=== PATIENT | male | born 1955 | race Caucasian/White ===

== ENCOUNTER 2016-09-16 05:15 | Day surgery (SDC) | payer BC ==
[~2016-09-16 05:15] MED LIST: Dextrose 5%-0.45% NaCl 1,000 ML IV SCH; Sodium Chloride 0.9% 10 ML Syringe FLUSH PRN
[2016-09-16] MEDS ORDERED: fentaNYL 100 MCG/2 ML SDV ONE (06:13)
[2016-09-16] MEDS ORDERED: Midazolam 1 MG/ML 2 ML SDV ONE (06:13)
[2016-09-16] MEDS ORDERED: fentaNYL 100 MCG/2 ML SDV IV ONE ×4 (06:26→16:36)
[2016-09-16] MEDS ORDERED: Midazolam 1 MG/ML 2 ML SDV IV ONE ×7 (06:27→16:36)
--- NOTE | 2016-09-16 07:26 | OR ---
DATE: 09/16/2016 PROCEDURES: Total colonoscopy, terminal ileoscopy, NBI, and multiple pinch biopsies. INSTRUMENT USED: CF-H180AL Olympus video colonoscope. PREMEDICATIONS: Fentanyl 125 mcg intravenous, Versed 4 mg intravenous. Nasal O2 cannula. The procedure was done under pulse oximetry, BP recording, and hoop flaring machine operator. INDICATION: The patient with chronic diarrhea unexplained and not responsive to medical measures. Colonoscopic examination is done for detection of any polypoid lesions and removal, endoscopic hemostasis therapy if needed. DESCRIPTION OF PROCEDURE: Initial rectal exam showed external hemorrhoidal tags. Rigid anoscopy showed small internal hemorrhoids without bleeding from them. The colonoscope was passed with ease. Numerous scattered diverticula were noted in the distal left colon along with some deformity. The scope was passed with ease up to and beyond the ileocecal junction to visualize normal-appearing terminal ileum, NBI views were obtained, multiple pinch biopsies were obtained from the terminal ileum. Photographs were taken of the normal-appearing cecum. No bleeding was noted from any of the visualized areas at the commencement of the examination. No stricture. No vascular ectasia. No large isolated ulcerations seen. No evidence of diffuse inflammatory bowel disease in the form of friability, contact bleeding, or ulcerations. Some patchy erythema was noted of the sigmoid area. Probing the proximal sides of folds and flexures using adequate distention and clearing of the stool material, withdrawal of the scope was made. Multiple pinch biopsies were taken from the transverse colon, mid- descending colon, and rectosigmoid, and sent for any histopathologic evidence of microscopic colitis. No bleeding was noted from any of the visualized areas at the completion of examination. IMPRESSION: 1. External and internal hemorrhoids. 2. Diverticulosis. The patient tolerated the procedure well. [facility] /[id number]
[2016-09-16 09:06] VITALS: BP 153/82
== END 2016-09-16 08:52 | disposition home or self-care (01) ==
LOC: DL.ENDO 05:15
PROVIDERS: ATTEND Internal Medicine Gastroenterology
DX: K52.832 Lymphocytic colitis (principal); K57.30 Diverticulosis of large intestine without perforation or abscess without bleeding; K64.4 Residual hemorrhoidal skin tags; K64.8 Other hemorrhoids; I10 Essential (primary) hypertension; K21.9 Gastro-esophageal reflux disease without esophagitis; E03.9 Hypothyroidism, unspecified; F41.1 Generalized anxiety disorder; N52.9 Male erectile dysfunction, unspecified; E66.09 Other obesity due to excess calories; Z79.899 Other long term (current) drug therapy
CPT/HCPCS: 45380; J2250; J3010; J7042

== ENCOUNTER 2018-05-22 13:55 | Emergency (ER) | payer BC ==
--- NOTE | 2018-05-22 14:13 | EDM.PDOC ---
ED HPI GENERAL MEDICAL PROBLEM - General Chief Complaint: Chest Pain Stated Complaint: BLOOD PRESSURE HIGH, CHEST PAINS Time Seen by Provider: 05/22/18 14:13 Source of Information: Reports: Patient, Old Records, RN, RN Notes Reviewed History Limitations: Reports: No Limitations - History of Present Illness INITIAL COMMENTS - FREE TEXT/NARRATIVE: Pt arrives to ER from pharmacy ([facility]) for evaluation of high blood pressure. Pt states he had his BP checked at the pharmacy and it was 200/110 and the pharmacist told him to go to the ER immediately. Pt denies any acute of recent symptoms. He report a Hx of HTN for the last 20 or 25 years. He admits to chest pain, but states it is chronic and unchanged for many year. The chest pain developed following a C-spine surgery. He underwent a chest pain evaluation , and was told the pain was "radicular pain" from his neck. He had a negative cardiac stress test in 2015. He denies edema, shortness of breath, cough, or orthopnea. Pt states his BP was well controlled until he had a change in medications last winter. In 2017 he began to notice that has BP slowly increased since being switched to Cozaar. Duration: Chronic Location: Reports: Other Severity: Severe Improves with: Reports: None Worsens with: Reports: None Associated Symptoms: Reports: No Other Symptoms Treatments PER DIEM: Reports: Other (see below) Left Chest Pain Score (Numeric/FACES): 5 - Related Data Allergies Allergy/AdvReac Type Severity Reaction Status Date / Time No Known Allergies Allergy Verified 05/22/18 14:08 Home Meds: Home Meds Aspirin [Adult Low Dose Aspirin EC] 81 mg PO DAILY 07/29/15 [History] Ibuprofen 400 mg PO ASDIRECTED PRN 07/29/15 [History] Levothyroxine 175 mcg PO DAILY 07/29/15 [History] Metoprolol Succinate [Toprol XL] 100 mg PO DAILY 07/29/15 [History] Omeprazole 20 mg PO Q4HR 07/29/15 [History] Sildenafil Citrate [Viagra] 100 mg PO ASDIRECTED PRN 07/29/15 [History] Losartan Potassium 50 mg PO DAILY 05/22/18 [History] Past Medical History HEENT History: Reports: None Cardiovascular History: Reports: High Cholesterol, Hypertension Respiratory History: Reports: None Gastrointestinal History: Reports: Chronic Diarrhea, Diverticulosis, GERD Genitourinary History: Reports: Other (See Below) Other Genitourinary History: ERECTILE DYSFUNCTION Musculoskeletal History: Reports: Arthritis, Back Pain, Chronic Neurological History: Reports: None Psychiatric History: Reports: None Endocrine/Metabolic History: Reports: Hypothyroidism, Other (See Below) Other Endocrine/Metabolic History: IMPAIRED FASTING GLUCOSE Hematologic History: Reports: Anemia Immunologic History: Reports: None Dermatologic History: Reports: Psoriasis - Infectious Disease History Infectious Disease History: Reports: Chicken Pox, Measles, Mumps - Past Surgical History HEENT Surgical History: Reports: None, Cataract Surgery GI Surgical History: Reports: Colonoscopy, EGD, Hernia, Inguinal, Other (See Below) Other GI Surgeries/Procedures: RIGHT INGUINAL HERNIA Neurological Surgical History: Reports: Laminectomy, Other (See Below) Other Neurological Surgeries/Procedures: S/P LUMBOSACRAL LAMINECTOMY. S/P CERVICAL LAMINECTOMY Musculoskeletal Surgical History: Reports: Other (See Below) Other Musculoskeletal Surgeries/Procedures:: Back and neck surgery for herniated discs. Social & Family History - Family History Family Medical History: Noncontributory - Caffeine Use Caffeine Use: Reports: Coffee Other Caffeine Use: 3 cups per day (Lg.) - Living Situation & Occupation Living situation: Reports: , with Spouse ED ROS GENERAL - Review of Systems Review Of Systems: ROS reveals no pertinent complaints other than HPI. ED EXAM, GENERAL - Physical Exam Exam: See Below Exam Limited By: No Limitations General Appearance: Alert, WD/WN, No Apparent Distress Eye Exam: Bilateral Eye: Other (no AV nicking) Nose: Normal Inspection, Normal Mucosa, No Blood Throat/Mouth: Normal Inspection, Normal Lips, Normal Voice, No Airway Compromise Head: Atraumatic, Normocephalic Neck: Normal Inspection, Supple, Non-Tender, Full Range of Motion Respiratory/Chest: No Respiratory Distress, Lungs Clear, Normal Breath Sounds, No Accessory Muscle Use, Chest Non-Tender Cardiovascular: Normal Peripheral Pulses, Regular Rate, Rhythm, No Edema, No Gallop, No JVD, No Murmur, No Rub GI/Abdominal: Normal Bowel Sounds, Soft, Non-Tender, No Organomegaly, No Distention, No Abnormal Bruit, No Mass (Male) Exam: Deferred Rectal (Males) Exam: Deferred Back Exam: Normal Inspection Extremities: Normal Inspection, Normal Range of Motion, Non-Tender, Normal Capillary Refill, No Pedal Edema Neurological: Alert, Oriented, CN II-XII Intact, Normal Cognition, No Motor/ Sensory Deficits Psychiatric: Normal Affect, Normal Mood Skin Exam: Warm, Dry, Intact, Normal Color, No Rash EKG INTERPRETATION EKG Date: 05/22/18 Time: 14:09 Rhythm: Other (SR) Rate (Beats/Min): 68 [place]: LAD-Left [place] Deviation P-Wave: Present QRS: Normal ST-T: Normal QT: Normal Comparison: Change From Previous EKG EKG Interpretation Comments: New inferior Q waves compared to July 2015. No acute ischemic changes. Course - Vital Signs Last Recorded V/S: Last Vital Signs Temp 37.1 C 05/22/18 13:58 Pulse 72 05/22/18 13:58 Resp 20 05/22/18 13:58 BP 191/111 H 05/22/18 13:58 Pulse Ox 97 05/22/18 13:58 BPs after rest in ER: 152-170/79-85. - Orders/Labs/Meds Orders: Active Orders 24 hr Category Date Time Status EKG 12 Lead [EKG Documentation Completion] [RC] STAT Care 05/22/18 14:13 Active Labs: Laboratory Tests 05/22/18 05/22/18 05/22/18 Range/Units 14:38 14:38 14:38 WBC 5.9 (5.0-10.0) 10^3/uL RBC 4.48 L (4.6-6.2) 10^6/uL Hgb 14.4 (14.0-18.0) g/dL Hct 43.5 (40.0-54.0) % MCV 97.1 (80-100) fL MCH 32.1 (27.0-34.0) pg MCHC 33.1 (33.0-35.0) g/dL Plt Count 173 (150-450) 10^3/uL Neut % (Auto) 63.9 (42.2-75.2) % Lymph % (Auto) 21.9 (20.5-50.1) % [place] % (Auto) 10.8 H (2-8) % Eos % (Auto) 2.7 (1.0-3.0) % Baso % (Auto) 0.7 (0.0-1.0) % Sodium 138 (135-145) mmol/L Potassium 3.6 (3.6-5.0) mmol/L Chloride 102 (101-111) mmol/L Carbon Dioxide 26.0 (21.0-31.0) mmol/L Anion Gap 13.6 BUN 11 (7-18) mg/dL Creatinine 1.0 (0.6-1.3) mg/dL Est Cr Clr Drug Dosing 71.61 mL/min Estimated GFR (MDRD) > 60 BUN/Creatinine Ratio 11.00 Glucose 122 H (74-105) mg/dL Calcium 8.9 (8.4-10.2) mg/dl Total Bilirubin 0.9 (0.2-1.0) mg/dL AST 47 H (10-42) IU/L ALT 55 (10-60) IU/L Alkaline Phosphatase 55 (42-121) IU/L Troponin I < 0.02 (0.00-0.02) ng/ml Total Protein 6.9 (6.7-8.2) g/dl Albumin 4.0 (3.2-5.5) g/dl Globulin 2.9 Albumin/Globulin Ratio 1.38 TSH, Ultra Sensitive 2.89 (0.45-5.33) uIu/mL - Radiology Interpretation Free Text/Narrative:: CXR: Rt basilar atelectasis, no other acute changes per Rad. report. Departure - Departure Time of Disposition: 15:44 Disposition: Home, Self-Care 01 Condition: Good Clinical Impression: Uncontrolled hypertension Instructions: Managing Your Hypertension Forms: ED Department Discharge Additional Instructions: Increase Losartan 50mg to 100mg (two tablets) daily. Restart the Aspirin 81mg daily. Continue all other medications as prescribed. Call [facility] to make appointment with Dr. Fitzpatrick for May 24. - My Orders Last 24 Hours: My Active Orders 05/22/18 14:13 EKG 12 Lead [EKG Documentation Completion] [RC] STAT - Assessment/Plan Last 24 Hours: My Active Orders 05/22/18 14:13 EKG 12 Lead [EKG Documentation Completion] [RC] STAT
[2018-05-22 14:50] VITALS: BP 191/111
[2018-05-22 15:04] LABS: ANION GAP 13.6; CHLORIDE,CL 102 mmol/L (101-111); SODIUM,NA 138 mmol/L (135-145)
--- NOTE | 2018-05-22 15:07 | CR ---
Clinical history: 62-year-old male uncontrolled hypertension. Interpretation: Platelike atelectasis right base reflecting less than optimal inspiratory effort. Chronic hypertrophic arthritic changes of the spine and ectasia of the aorta. Normal cardiac silhouette without cephalization of flow, alveolar edema or dependent new pleural fluid accumulation when compared to 16 February 2012 exam. (Old lower cervical spinal fusion and external pulmonary function technologist leads). No new lung mass, hilar lymphadenopathy or focal lobar pneumonia. No pneumothorax. CONCLUSION: Atelectasis right lung base.
== END 2018-05-22 15:56 | disposition home or self-care (01) ==
LOC: DL.ED 13:55
DX: I10 Essential (primary) hypertension (principal); E03.9 Hypothyroidism, unspecified; K21.9 Gastro-esophageal reflux disease without esophagitis; E78.00 Pure hypercholesterolemia, unspecified; Z79.82 Long term (current) use of aspirin; Z79.899 Other long term (current) drug therapy
CPT/HCPCS: 36415; 71046; 80053; 84443; 84484; 85025; 93005; 99285-25

== ENCOUNTER 2019-08-14 05:21 | Day surgery (SDC) | payer BC ==
[2019-08-14] MEDS ORDERED: fentaNYL 100 MCG/2 ML SDV IV ONE ×3 (05:22→06:30)
[2019-08-14] MEDS ORDERED: Midazolam 1 MG/ML 2 ML SDV IV ONE ×3 (05:22→06:31)
[2019-08-14] MEDS ORDERED: Midazolam 1 MG/ML 2 ML SDV ONE (06:14)
[2019-08-14] MEDS ORDERED: Dextrose 5%-0.45% NaCl 1,000 ML IV SCH (06:15)
[2019-08-14] MEDS ORDERED: fentaNYL 100 MCG/2 ML SDV ONE (06:15)
[2019-08-14 11:08] VITALS: BP 134/94; PULSE 87
--- NOTE | 2019-08-14 13:54 | OR ---
DATE: 08/14/2019 PROCEDURE: Esophagogastroduodenoscopy and multiple pinch biopsies. INSTRUMENT USED: GIF-HQ190 Olympus video panendoscope. PREMEDICATIONS: No oral or topical anesthesia used. Fentanyl 100 mcg intravenous, Versed 2 mg intravenous. Nasal O2 cannula. The procedure was done under pulse oximetry, BP recording, and still cleaner. INDICATION: The patient with persistent abdominal pain, unexplained and not responsive to medical measures, on high-dose PPI. Esophagogastroduodenoscopy is performed for detection of any active erosive lesions, [place] esophagus and/or malignancy also under consideration, H. pylori status to be determined, endoscopic hemostasis therapy if needed. DESCRIPTION OF PROCEDURE: The scope was passed with ease. Adequate visualization of the esophagus was made from proximal to distal areas. No upper esophageal lesions identified. No distal esophageal stricture. No uphill or downhill esophageal varices. No Guadalupe-Saavedra tear. No evidence of erosive esophagitis by [place] criteria. No esophageal polyp or tumor mass identified. Z-line was seen at around 40 cm distal to the oral verge, configuration consistent with grade 1 by ZAP classification. No proximal gastric varices noted. Gastric fundus examination by retroflexion showed no polypoid lesions. The examination was compromised in a few areas due to the presence of solid food material that could not be aspirated clear. No gastric ulcer, malignant mass, or vascular ectasia identified. Patchy erythema on the gastric antral mucosa was noted. Duodenal bulb showed no ulcer. Visualized second part of the duodenum was unremarkable. Multiple pinch biopsies were taken from the gastric antrum and proximal body and sent for PyloriTek test for H. pylori, and if negative in an hour, the tissue is to be sent for histopathology. No bleeding was noted from any of the visualized areas at the completion of the examination. Photographs were taken of the duodenal bulb, gastric antrum, fundus, and distal esophagus. IMPRESSION: Gastroparesis. The patient tolerated the procedure well. [facility] /[id number]
== END 2019-08-14 08:59 | disposition home or self-care (01) ==
LOC: DL.ENDO 05:21
PROVIDERS: ATTEND Internal Medicine Gastroenterology
DX: K29.00 Acute gastritis without bleeding (principal); K29.50 Unspecified chronic gastritis without bleeding; K31.84 Gastroparesis; K31.9 Disease of stomach and duodenum, unspecified; E66.09 Other obesity due to excess calories; I10 Essential (primary) hypertension; E03.9 Hypothyroidism, unspecified; K21.9 Gastro-esophageal reflux disease without esophagitis; F41.1 Generalized anxiety disorder; Z79.899 Other long term (current) drug therapy; Z68.35 Body mass index [BMI] 35.0-35.9, adult
CPT/HCPCS: 43239; 87077; J2250; J3010; J7042

== ENCOUNTER 2019-12-25 12:38 | Emergency (ER) | payer BC ==
[2019-12-25 12:59] VITALS: BP 132/81; PULSE 98
--- NOTE | 2019-12-25 13:26 | EDM.PDOC ---
ED HPI GENERAL MEDICAL PROBLEM - General Chief Complaint: General Stated Complaint: SHORTNESS OF BREATH Time Seen by Provider: 12/25/19 13:05 Source of Information: Reports: Patient, RN, RN Notes Reviewed History Limitations: Reports: No Limitations - History of Present Illness INITIAL COMMENTS - FREE TEXT/NARRATIVE: Patient presents to the ED via personal vehicle with complaints of shortness of breath, body aches, and fever. Per patient report, his symptoms began on Tuesday of this past week (12/21/2019). He states his tested positive for COVID last Tuesday (12/18/2019) and has been quarantining in their home since that time. He attests to sore throat, dry cough, chest pain, nausea, diarrhea, and headache; his Tmax was 103 this morning at 0300. He denies palpitations, dyspepsia, vomiting, melena, or hematochezia. The patient states he has taken Motrin 800mg x2 for his fevers, which he states has alleviated his fever for some time. He reports he feels like he has COVID, but is concerned as he became increasingly short of breath this morning at about 0300 while wearing his CPAP. He checked his oxygen saturation on an at home monitor and it read in the 70s - Related Data Allergies Allergy/AdvReac Type Severity Reaction Status Date / Time HUMIRA PEN STARTER AdvReac Unknown SWELLING Uncoded 12/25/19 12:55 OF LEGS/FEET Home Meds: Home Meds Aspirin [Adult Low Dose Aspirin EC] 81 mg PO DAILY 07/29/15 [History] Ibuprofen 400 mg PO ASDIRECTED PRN 07/29/15 [History] Levothyroxine 175 mcg PO DAILY 07/29/15 [History] Metoprolol Succinate [Toprol XL] 100 mg PO DAILY 07/29/15 [History] Omeprazole 20 mg PO BID 07/29/15 [History] Sildenafil Citrate [Viagra] 100 mg PO ASDIRECTED PRN 07/29/15 [History] Apixaban [Eliquis] 5 mg PO BID 08/13/19 [History] Ixekizumab [Taltz Syringe] 800 mg INJECT .MONTH 08/13/19 [History] amLODIPine Besylate [Amlodipine Besylate] 10 mg PO DAILY 08/13/19 [History] atorvaSTATin Calcium [Atorvastatin Calcium] 40 mg PO DAILY 08/13/19 [History] predniSONE [Prednisone] 3 mg PO BID 08/13/19 [History] Past Medical History HEENT History: Reports: Impaired Vision Cardiovascular History: Reports: Afib, High Cholesterol, Hypertension Respiratory History: Reports: None Gastrointestinal History: Reports: Chronic Diarrhea, Diverticulosis, GERD, Other (See Below) Other Gastrointestinal History: LYMPHOCYTIC COLITIS Genitourinary History: Reports: Other (See Below) Other Genitourinary History: ERECTILE DYSFUNCTION Musculoskeletal History: Reports: Arthritis, Back Pain, Chronic, Fracture, Other (See Below) Other Musculoskeletal History: HX OF SHOULDER AND FOOT FRACTURES Neurological History: Reports: Other (See Below) Other Neuro History: pinched nerve in neck Psychiatric History: Reports: Anxiety Endocrine/Metabolic History: Reports: Hypothyroidism, Obesity/BMI 30+, Vitamin D Deficiency, Other (See Below) Other Endocrine/Metabolic History: IMPAIRED FASTING GLUCOSE Hematologic History: Reports: Anemia Immunologic History: Reports: None Oncologic (Cancer) History: Reports: None Dermatologic History: Reports: Psoriasis - Infectious Disease History Infectious Disease History: Reports: None - Past Surgical History Head Surgeries/Procedures: Reports: None HEENT Surgical History: Reports: Cataract Surgery Cardiovascular Surgical History: Reports: None Respiratory Surgical History: Reports: None GI Surgical History: Reports: Colonoscopy, EGD, Hernia, Inguinal, Other (See Below) Other GI Surgeries/Procedures: RIGHT INGUINAL HERNIA Male Surgical History: Reports: None Endocrine Surgical History: Reports: None Neurological Surgical History: Reports: C-Spine, Laminectomy, Other (See Below) Other Neurological Surgeries/Procedures: S/P LUMBOSACRAL LAMINECTOMY. S/P CERVICAL LAMINECTOMY Musculoskeletal Surgical History: Reports: Other (See Below) Other Musculoskeletal Surgeries/Procedures:: Back and neck surgery for herniated discs. Oncologic Surgical History: Reports: None Dermatological Surgical History: Reports: None Social & Family History - Family History Family Medical History: Noncontributory - Tobacco Use Tobacco Use Status *Q: Unknown Ever Used Tobacco - Caffeine Use Caffeine Use: Reports: Coffee Other Caffeine Use: 1 CUP DECAF, 1 CUP REGULAR - Alcohol Use Days Per Week of Alcohol Use: 7 Number of Drinks Per Day: 2 Total Drinks Per Week: 14 - Recreational Drug Use Recreational Drug Use: No - Living Situation & Occupation Living situation: Reports: , with Spouse ED ROS GENERAL - Review of Systems Review Of Systems: Comprehensive ROS is negative, except as noted in HPI. ED EXAM, GENERAL - Physical Exam Exam: See Below Exam Limited By: No Limitations General Appearance: Alert, WD/WN, No Apparent Distress Eye Exam: Bilateral Eye: EOMI, Normal Inspection, PERRL Ears: Normal External Exam, Normal Canal, Hearing Grossly Normal. No: Normal TMs (Right cerumen impaction; Left TM normal) Ear Exam: Left Ear: TM normal (R TM not visualized d/t cerumen impactoin), Bilateral Ear: Auricle Normal, Canal Normal Nose: Normal Inspection, Clear Rhinorrhea Throat/Mouth: Normal Lips, Normal Oropharynx, Normal Voice, No Airway Compromise, Inflammation (Erythema to posterior oropharynx) Head: Atraumatic, Normocephalic Neck: Normal Inspection, Supple, Non-Tender, Full Range of Motion, Lymphadenopathy (L). No: Lymphadenopathy (R) Respiratory/Chest: No Accessory Muscle Use, Decreased Breath Sounds. No: Chest Non-Tender, Crackles, Rales, Rhonchi, Wheezing Cardiovascular: Normal Peripheral Pulses, No Gallop, No JVD, No Murmur, No Rub, Irregularly Irregular (AFib). No: No Edema (+1 pitting to BLE) Peripheral Pulses: 2+: Radial (L), Radial (R) GI/Abdominal: Soft, No Distention, No Mass, Abnormal Bowel Sounds (Hyperactive) Back Exam: Normal Inspection, Full Range of Motion. No: CVA Tenderness (L), CVA Tenderness (R) Extremities: Normal Range of Motion, Normal Capillary Refill, Pedal Edema (+1 pitting to LLE). No: Non-Tender (Generalized muscle aches) Neurological: Alert, Oriented, CN II-XII Intact, Normal Cognition, Normal Gait, No Motor/Sensory Deficits Skin Exam: Warm, Dry, Intact, Normal Color, No Rash. No: Ecchymosis, Erythema, Mottled, Pallor, Petechiae, Rash #1 Interpretation EKG Date: 12/25/19 Time: 13:23 Rhythm: A-Flutter [place]: LAD-Left [place] Deviation P-Wave: Absent QRS: Normal ST-T: Normal QT: Normal Course - Vital Signs Last Recorded V/S: Last Vital Signs Temp 99.4 F 12/25/19 12:56 Pulse 98 12/25/19 12:56 Resp 18 12/25/19 12:56 BP 132/81 12/25/19 12:56 Pulse Ox 93 L 12/25/19 12:56 - Orders/Labs/Meds Orders: Active Orders 24 hr Category Date Time Status EKG Documentation Completion [RC] STAT Care 12/25/19 13:13 Active CORONAVIRUS COVID-19 PCR PHL Stat Lab 12/25/19 12:50 Received CULTURE BLOOD [BC] Stat Lab 12/25/19 13:30 Received FERRITIN [CHEM] Stat Lab 12/25/19 13:30 Received Labs: Laboratory Tests 12/25/19 12/25/19 12/25/19 Range/Units 13:30 13:30 13:30 WBC 5.4 (5.0-10.0) 10^3/uL RBC 4.72 (4.6-6.2) 10^6/uL Hgb 15.0 (14.0-18.0) g/dL Hct 45.4 (40.0-54.0) % MCV 96.2 (80-100) fL MCH 31.8 (27.0-34.0) pg MCHC 33.0 (33.0-35.0) g/dL Plt Count 111 L (150-450) 10^3/uL Neut % (Auto) 81.8 H (42.2-75.2) % Lymph % (Auto) 9.2 L (20.5-50.1) % [place] % (Auto) 9.0 H (2-8) % Eos % (Auto) 0.0 L (1.0-3.0) % Baso % (Auto) 0.0 (0.0-1.0) % PT 11.8 (9.0-12.0) SEC INR 1.2 (0.9-1.2) APTT 31.0 (22.0-34.0) SEC D-Dimer, Quantitative (0-400) ng/mL Sodium 142 (136-145) mmol/L Potassium 3.8 (3.5-5.1) mmol/L Chloride 104 (98-107) mmol/L Carbon Dioxide 26 (21-32) mmol/L Anion Gap 15.8 H (7-13) mEq/L BUN 15 (7-18) mg/dL Creatinine 1.10 (0.70-1.30) mg/dL Est Cr Clr Drug Dosing 63.43 mL/min Estimated GFR (MDRD) > 60 BUN/Creatinine Ratio 13.6 (No establ ref range) Glucose 116 H (74-99) mg/dL Lactic Acid (0.4-2.0) mmol/L Calcium 9.1 (8.5-10.1) mg/dL Magnesium 1.6 L (1.8-2.4) mg/dL Total Bilirubin 0.5 (0.2-1.0) mg/dL AST 28 (15-37) U/L ALT 44 (16-63) U/L Alkaline Phosphatase 61 (46-116) U/L Troponin I < 0.017 (0.000-0.056) ng/mL C-Reactive Protein 16.8 H (0.0-0.9) mg/dL Total Protein 7.0 (6.4-8.2) g/dL Albumin 3.1 L (3.4-5.0) g/dL Globulin 3.9 Albumin/Globulin Ratio 0.79 12/25/19 12/25/19 Range/Units 13:30 13:30 WBC (5.0-10.0) 10^3/uL RBC (4.6-6.2) 10^6/uL Hgb (14.0-18.0) g/dL Hct (40.0-54.0) % MCV (80-100) fL MCH (27.0-34.0) pg MCHC (33.0-35.0) g/dL Plt Count (150-450) 10^3/uL Neut % (Auto) (42.2-75.2) % Lymph % (Auto) (20.5-50.1) % [place] % (Auto) (2-8) % Eos % (Auto) (1.0-3.0) % Baso % (Auto) (0.0-1.0) % PT (9.0-12.0) SEC INR (0.9-1.2) APTT (22.0-34.0) SEC D-Dimer, Quantitative 138 (0-400) ng/mL Sodium (136-145) mmol/L Potassium (3.5-5.1) mmol/L Chloride (98-107) mmol/L Carbon Dioxide (21-32) mmol/L Anion Gap (7-13) mEq/L BUN (7-18) mg/dL Creatinine (0.70-1.30) mg/dL Est Cr Clr Drug Dosing mL/min Estimated GFR (MDRD) BUN/Creatinine Ratio (No establ ref range) Glucose (74-99) mg/dL Lactic Acid 1.5 (0.4-2.0) mmol/L Calcium (8.5-10.1) mg/dL Magnesium (1.8-2.4) mg/dL Total Bilirubin (0.2-1.0) mg/dL AST (15-37) U/L ALT (16-63) U/L Alkaline Phosphatase (46-116) U/L Troponin I (0.000-0.056) ng/mL C-Reactive Protein (0.0-0.9) mg/dL Total Protein (6.4-8.2) g/dL Albumin (3.4-5.0) g/dL Globulin Albumin/Globulin Ratio Departure - Departure Time of Disposition: 14:42 Disposition: Home, Self-Care 01 Condition: Good Clinical Impression: Close exposure to COVID-19 virus, Viral upper respiratory illness - Discharge Information *PRESCRIPTION DRUG MONITORING PROGRAM REVIEWED*: Not Applicable *COPY OF PRESCRIPTION DRUG MONITORING REPORT IN PATIENT [place]: Not Applicable Instructions: Viral Respiratory Infection, [id number] Forms: ED Department Discharge Additional Instructions: Remain in self-isolation until results from COVID screen have been determined; if positive remain in quarantine until 14 post-symptoms. Drink plenty of fluids to stay hydrated. Take 650mg acetaminophen (Tylenol) every six hours, as fever and muscle aches persists. Take 400mg ibuprofen (Motrin/Advil) every six hours, as fever and muscle aches persists. You can stagger these medications so you are taking a dose of each medication every 3 hours. Follow up with primary care provider or emergency department with any significant worsening of shortness of breath, chest pain, or fever that does not reduce with medications. Sepsis Event Note (ED) - Evaluation Sepsis Screening Result: No Definite Risk - Focused Exam Vital Signs: Vital Signs Temp Pulse Resp BP Pulse Ox 12/25/19 12:56 99.4 F 98 18 132/81 93 L - My Orders Last 24 Hours: My Active Orders 12/25/19 12:50 CORONAVIRUS COVID-19 PCR PHL Stat 12/25/19 13:13 EKG Documentation Completion [RC] STAT 12/25/19 13:30 CULTURE BLOOD [BC] Stat FERRITIN [CHEM] Stat - Assessment/Plan Last 24 Hours: My Active Orders 12/25/19 12:50 CORONAVIRUS COVID-19 PCR PHL Stat 12/25/19 13:13 EKG Documentation Completion [RC] STAT 12/25/19 13:30 CULTURE BLOOD [BC] Stat FERRITIN [CHEM] Stat
[2019-12-25 14:04] LABS: ANION GAP 15.8 mEq/L (7-13); CHLORIDE,CL 104 mmol/L (98-107); SODIUM,NA 142 mmol/L (136-145)
== END 2019-12-25 14:55 | disposition home or self-care (01) ==
LOC: DL.ED 12:38
DX: J06.9 Acute upper respiratory infection, unspecified (principal); H61.21 Impacted cerumen, right ear; I48.91 Unspecified atrial fibrillation; E78.00 Pure hypercholesterolemia, unspecified; I10 Essential (primary) hypertension; K21.9 Gastro-esophageal reflux disease without esophagitis; M19.90 Unspecified osteoarthritis, unspecified site; E03.9 Hypothyroidism, unspecified; E66.9 Obesity, unspecified; Z68.34 Body mass index [BMI] 34.0-34.9, adult; Z79.01 Long term (current) use of anticoagulants; Z20.828 Contact with and (suspected) exposure to other viral communicable diseases; Z88.8 Allergy status to other drugs, medicaments and biological substances
CPT/HCPCS: 36415; 80053; 82728; 83605; 83735; 84484; 85025; 85379; 85610; 85730; 86140; 87040; 93005; 99285-25; U0002

== ENCOUNTER 2021-07-26 15:44 | Emergency (ER) | payer MEDICARE, BC ==
[2021-07-26] MEDS ORDERED: Acetaminophen/HYDROcodone 325-10 MG Tab PO ONE (15:45)
[2021-07-26] MEDS ORDERED: Ondansetron 4 MG/2 ML SDV IVPUSH ONE (16:18)
[2021-07-26] MEDS ORDERED: HYDROmorphone 1 MG/ML Syringe IVPUSH ONE (16:18)
[2021-07-26 16:55] LABS: PTT,PARTIAL THROMBOPLSTIN TIME 26.3 SEC (22.0-34.0)
[2021-07-26 17:01] LABS: ANION GAP 15.4 mEq/L (7-13); CHLORIDE,CL 106 mmol/L (98-107); SODIUM,NA 146 mmol/L (136-145)
[2021-07-26] MEDS ORDERED: Iopamidol 612 MG/ML 100 ML Bottle IVPUSH ONE (17:07)
[2021-07-26] MEDS ORDERED: Acetaminophen/HYDROcodone 325-10 MG Tab ONE (20:21)
[2021-07-26 20:28] VITALS: BP 144/92; PULSE 88
== END 2021-07-26 20:28 | disposition home or self-care (01) ==
LOC: DL.ED 15:44
DX: S82.831A Other fracture of upper and lower end of right fibula, initial encounter for closed fracture (principal); I48.91 Unspecified atrial fibrillation; E78.00 Pure hypercholesterolemia, unspecified; I10 Essential (primary) hypertension; E03.9 Hypothyroidism, unspecified; E66.9 Obesity, unspecified; Z68.35 Body mass index [BMI] 35.0-35.9, adult; Z79.82 Long term (current) use of aspirin; Z88.8 Allergy status to other drugs, medicaments and biological substances; Z79.01 Long term (current) use of anticoagulants; Z79.899 Other long term (current) drug therapy; W18.30XA Fall on same level, unspecified, initial encounter
CPT/HCPCS: 36415; 73701; 80053; 82550; 83605; 85025; 85610; 85730; 86140; 96374; 96375; 99284; A9270; J1170; J2405; Q9967

== ENCOUNTER 2021-09-08 19:54 | Emergency (ER) | payer MEDICARE, BC ==
[2021-09-08] MEDS ORDERED: Ondansetron 4 MG Tab.DIS PO ONE (19:55)
[2021-09-08] MEDS: Ondansetron 4 MG/2 ML SDV IVPUSH ONE (20:31)
[2021-09-08] MEDS: HYDROmorphone 1 MG/ML Syringe IVPUSH ONE ×2 (20:32→22:18)
[2021-09-08] MEDS: Sodium Chloride 0.9% 1,000 ML IV ONE (20:34)
[2021-09-08 20:48] LABS: PTT,PARTIAL THROMBOPLSTIN TIME 26.5 SEC (22.0-34.0)
[2021-09-08 20:51] LABS: CHLORIDE,CL 103 mmol/L (98-107); SODIUM,NA 143 mmol/L (136-145)
[2021-09-08 21:00] LABS: ESTIMATED GFR 63 mL/min (>=60)
[2021-09-08] MEDS ORDERED: Iopamidol 612 MG/ML 100 ML Bottle IVPUSH ONE (21:16)
[2021-09-08] MEDS: Famotidine 20 MG/2 ML SDV IVPUSH ONE (22:15)
[2021-09-08 22:44] VITALS: BP 121/76; PULSE 76
[2021-09-08] MEDS: Ondansetron 4 MG Tab.DIS ONE (23:07)
== END 2021-09-08 23:05 | disposition home or self-care (01) ==
LOC: DL.ED 19:54
DX: K57.90 Diverticulosis of intestine, part unspecified, without perforation or abscess without bleeding (principal); K80.20 Calculus of gallbladder without cholecystitis without obstruction; K76.0 Fatty (change of) liver, not elsewhere classified; E78.00 Pure hypercholesterolemia, unspecified; I10 Essential (primary) hypertension; E66.9 Obesity, unspecified; Z68.36 Body mass index [BMI] 36.0-36.9, adult; Z88.8 Allergy status to other drugs, medicaments and biological substances; Z79.82 Long term (current) use of aspirin; Z79.899 Other long term (current) drug therapy; Z79.01 Long term (current) use of anticoagulants; Z86.16 Personal history of COVID-19; Z20.822 Contact with and (suspected) exposure to COVID-19
CPT/HCPCS: 36415; 74176; 80053; 81001; 82150; 83605; 83690; 83880; 84484; 85025; 85610; 85730; 86140; 93005; 96361; 96374; 96375; 96376; 99284-25; A9270-GY; J1170; J2405; J3490; J7030; U0002

== ENCOUNTER 2021-09-09 07:49 | Emergency (ER) | payer MEDICARE, BC ==
[2021-09-09 08:07] VITALS: BP 152/91; PULSE 94
[2021-09-09] MEDS: HYDROmorphone 0.5 MG/0.5 ML Syringe IVPUSH ONE ×4 (08:15→12:33)
[2021-09-09] MEDS: Sodium Chloride 0.9% 10 ML Syringe FLUSH PRN (08:15)
[2021-09-09] MEDS: Ondansetron 4 MG/2 ML SDV IVPUSH ONE ×2 (08:15→12:33)
[2021-09-09 08:53] LABS: ANION GAP 14.1 mEq/L (7-13)
[2021-09-09] MEDS: Iopamidol 612 MG/ML 100 ML Bottle IVPUSH ONE (09:48)
[2021-09-09] MEDS: Magnesium Sulfate/Water 2 GM in Premix Bag 1 BAG IV ONE (10:11)
[2021-09-09] MEDS: Sodium Chloride 0.9% 1,000 ML IV ONE (10:11)
== END 2021-09-09 13:00 ==
LOC: DL.ED 07:49
DX: K81.9 Cholecystitis, unspecified (principal); E78.00 Pure hypercholesterolemia, unspecified; K21.9 Gastro-esophageal reflux disease without esophagitis; E03.9 Hypothyroidism, unspecified; I10 Essential (primary) hypertension; E66.9 Obesity, unspecified; Z68.35 Body mass index [BMI] 35.0-35.9, adult; Z88.8 Allergy status to other drugs, medicaments and biological substances; Z79.899 Other long term (current) drug therapy; Z79.82 Long term (current) use of aspirin; Z79.01 Long term (current) use of anticoagulants; Z86.16 Personal history of COVID-19
CPT/HCPCS: 36415; 74177; 80053; 83605; 83690; 83735; 85025; 86140; 96365; 96366; 96375; 96376; 99285-25; J1170; J2405; J3475; J3490; J7030; Q9967

== ENCOUNTER → 2022-06-28 | Day surgery (SDC) | payer MEDICARE, BC ==
[~2022-06-28] MED LIST changes: +Midazolam 1 MG/ML 2 ML SDV IV ONE; +Midazolam 1 MG/ML 2 ML SDV ONE; -Sodium Chloride 0.9% 10 ML Syringe FLUSH PRN; +fentaNYL 100 MCG/2 ML SDV IV ONE; +fentaNYL 100 MCG/2 ML SDV ONE
[2022-06-28 09:58] VITALS: BP 128/77; PULSE 77
== END | disposition home or self-care (01) ==
LOC: DL.ENDO 05:49
PROVIDERS: ATTEND Internal Medicine Gastroenterology
DX: D12.2 Benign neoplasm of ascending colon (principal); D12.3 Benign neoplasm of transverse colon; D12.7 Benign neoplasm of rectosigmoid junction; D12.4 Benign neoplasm of descending colon; K52.832 Lymphocytic colitis; E66.09 Other obesity due to excess calories; I10 Essential (primary) hypertension; E03.9 Hypothyroidism, unspecified; K21.9 Gastro-esophageal reflux disease without esophagitis; I48.91 Unspecified atrial fibrillation; F41.1 Generalized anxiety disorder; Z87.891 Personal history of nicotine dependence; F10.10 Alcohol abuse, uncomplicated; Z68.36 Body mass index [BMI] 36.0-36.9, adult; Y90.9 Presence of alcohol in blood, level not specified
CPT/HCPCS: 45385; J2250; J3010; J7042; 88305